=== PATIENT | female | born 1940 | race African-American/Black ===

== ENCOUNTER 2019-08-07 10:51 | Outpatient (CLI) | payer MEDICARE, BC ==
[~2019-08-07 10:51] MED LIST: CARB1TAB PO; DEXL60CA2 PO; ESOM20CA PO; HYDR-3151 PO; HYDR-3245 PO; HYDR1POW19; HYDR25TA6 PO; LEVO25TA4 PO; LISI-167 PO; ONDA4TAB7 PO; SUCR1TAB33 PO; VERA120C2 PO; [UNRECOGNIZED DRUG - OTHER] PO
[2019-08-07] MEDS ORDERED: OMNIPAQUE 350 MG/ML, 100ML BOTTLE ONE (13:00)
== END 2019-08-07 23:59 | disposition home or self-care (01) ==
LOC: RAD 10:51
PROVIDERS: ATTEND Internal Medicine
DX: C18.2 Malignant neoplasm of ascending colon (principal)
CPT/HCPCS: 74177; Q9967